=== PATIENT | male | born 1965 | race Caucasian/White ===

== ENCOUNTER 2020-01-20 02:46 | Emergency (ER) | payer OTHER ==
[~2020-01-20] VITALS: Ht 165.1 cm; Wt 76.2 kg
[2020-01-20 03:32] VITALS: Ht 165.1 cm; Wt 76.2 kg
[2020-01-20 04:28] LABS: BASOPHIL % 0.2 % (0.2-1.5); PLATELET COUNT 214 x10^3mcL (152-348); RED CELL DISTRIBUTION WIDTH 13.1 % (12.1-16.2)
[2020-01-20 04:30] LABS: CALCIUM 8.9 mg/dL (8.5-10.1); CARBON DIOXIDE 27.6 mmol/L (21-32); CHLORIDE SERUM 103 mmol/L (98-107); CREATININE SERUM 0.9 mg/dL (0.7-1.3); GFR1 > 60 mL/min; GLUCOSE SERUM 122 mg/dL (74-106); POTASSIUM SERUM 3.9 mmol/L (3.5-5.1); SODIUM SERUM 142 mmol/L (136-145)
[2020-01-20 04:34] LABS: rbc morphology (normal/abnorm) NORMAL (NORMAL)
[2020-01-20 04:35] LABS: ALKALINE PHOSPHATASE 114 U/L (46-116); ALT/SGPT 138 U/L (16-63); AST/SGOT 117 U/L (15-37); BILIRUBIN TOTAL 0.43 mg/dL (0.20-1.00); LIPASE 195 IU/L (73-393)
[2020-01-20 04:40] LABS: TOTAL PROTEIN, SERUM 8.5 g/dL (6.4-8.2)
[2020-01-20 10:12] VITALS: BP 136/95
== END 2020-01-20 11:43 | disposition home or self-care (01) ==
LOC: ED 02:46
DX: R10.11 Right upper quadrant pain (principal); F10.20 Alcohol dependence, uncomplicated; Z88.5 Allergy status to narcotic agent; Z90.49 Acquired absence of other specified parts of digestive tract; Z98.890 Other specified postprocedural states
CPT/HCPCS: Q0162